=== PATIENT | female | born 1980 | race Caucasian/White ===

== ENCOUNTER 2023-04-29 04:05 | Emergency (ER) | payer OTHER ==
[~2023-04-29] VITALS: Ht 165.1 cm; Wt 72.8 kg
[2023-04-29 04:10] VITALS: BP 108/62; PULSE 76; RESP 17; TEMP 97.6; O2SAT 99
[2023-04-29] MEDS ORDERED: ONDANSETRON 4 MG/2 ML VIAL IVP ONE (04:55)
[2023-04-29] MEDS ORDERED: KETOROLAC 30 MG/ML VIAL IVP ONE (04:55)
[2023-04-29] MEDS ORDERED: DICYCLOMINE HCL LIQUID 20 MG, ALUMINUM HYD/MAG/SIMETHICONE 30 ML, LIDOCAINE VISCOUS 2% ... PO ONE ×3 (04:55)
[2023-04-29] MEDS ORDERED: DICYCLOMINE HCL LIQUID 10 MG/5 ML UDC ONE (05:05)
[2023-04-29] MEDS ORDERED: ALUMINUM HYD/MAG/SIMETHICONE 30 ML UDC ONE (05:05)
[2023-04-29 05:23] LABS: BASOPHILS # (AUTO) 0.1 K/uL (0.00-0.22); BASOPHILS % (AUTO) 0.5 % (0.0-2.0); EOSINOPHILS # (AUTO) 0.1 K/uL (0-0.4); EOSINOPHILS % (AUTO) 0.6 % (0.0-4.0); HEMATOCRIT 37.4 % (36-48); HEMOGLOBIN 12.6 g/dL (12.0-16.0); LYMPHOCYTES # (AUTO) 1.8 K/uL (2.5-16.5); LYMPHOCYTES % (AUTO) 17.4 % (20.5-51.1); MEAN CORPUSCULAR HEMOGLOBIN 31 pg (27-31); MEAN CORPUSCULAR HGB CONC 34 g/dL (33-37); MEAN CORPUSCULAR VOLUME 90.5 fL (80-94); MONOCYTES # (AUTO) 0.9 K/uL (0.8-1.0); MONOCYTES % (AUTO) 8.8 % (1.7-9.3); NEUTROPHILS # (AUTO) 7.6 K/uL (1.8-7.7); NEUTROPHILS % (AUTO) 72.7 % (42.2-75.2); PLATELET COUNT (AUTO) 247 K/uL (140-450); RED BLOOD CELL COUNT(AUTO) 4.13 MIL/uL (4.20-5.40); RED CELL DISTRIBUTION WIDTH 13.8 % (11.6-13.7); WHITE BLOOD COUNT (AUTO) 10.4 K/uL (4.8-10.8)
[2023-04-29 05:28] LABS: APPEARANCE,URINE CLEAR (CLEAR); BILIRUBIN,URINE NEGATIVE (NEGATIVE); BLOOD, URINE 1+ (NEGATIVE); COLOR,URINE YELLOW (YELLOW); LEUKOCYTE ESTERASE ,URINE NEGATIVE (NEGATIVE); NITRITE, URINE NEGATIVE (NEGATIVE); PROTEIN,URINE TRACE (NEGATIVE); UGLUCOSE NEGATIVE (NEGATIVE); UROBILINOGEN,URINE 0.2 EU/dL (0.2 - 1)
[2023-04-29 05:46] LABS: ALBUMIN 3.6 g/dL (3.4-5.0); ANION GAP 11.3 (8-16); CALCIUM 8.4 mg/dL (8.5-10.1); CARBON DIOXIDE 28.1 mmol/L (21-32); CREATININE 0.8 mg/dL (0.6-1.3); POTASSIUM 3.4 mmol/L (3.5-5.1); TOTAL BILIRUBIN 0.5 mg/dL (0.0-1.0)
[2023-04-29 05:49] LABS: BACTERIA,URINE >30 (MANY) /HPF (None Seen); MUCUS,URINE 1+ /LPF (None Seen); SQUAMOUS EPITHELIAL CELL,UR 20-50 /LPF (0-3 (FEW)); WBC,URINE 0-5 /HPF (0-5)
[2023-04-29] MEDS ORDERED: ONDA-188 SL (06:09)
[2023-04-29] MEDS ORDERED: MAG-27 PO (06:09)
[2023-04-29 06:32] VITALS: BP 105/67; PULSE 73; RESP 17; TEMP 97.6; O2SAT 99
== END 2023-04-29 06:32 | disposition home or self-care (01) ==
LOC: EDSEX 04:05 → MED 04:05
DX: R11.2 Nausea with vomiting, unspecified (principal); R10.10 Upper abdominal pain, unspecified; Z79.899 Other long term (current) drug therapy
CPT/HCPCS: 36415; 80053; 81001; 81025; 83690; 85025; 87086; 96374; 96375; 99284; J1885; J2405